=== PATIENT | female | born 1965 | race Hispanic/Latino ===

== ENCOUNTER 2016-09-07 02:39 | Emergency (ER) | payer BC ==
[~2016-09-07] VITALS: Ht 154.9 cm; Wt 71.8 kg
[~2016-09-07 02:39] MED LIST: BP MEDICATION; BYSTOLIC10 MG PO; CIPRO500 MG PO; FLAGYL500 MG PO; FLOMAX0.4 MG PO; HYDROCODON-ACE1 EA12 PO; LOSARTAN POTAS100 MG PO; LOSARTAN POTASS50 MG PO; PERCOCET 5/31 TABLET PO; ZOFRAN ODT4 MG PO; ZOFRAN ODT8 MG PO; ZOFRAN4 MG PO
[2016-09-07 03:26] LABS: HEMATOCRIT 35.5 % (36.0-46.0); MCH 29.7 PG (29.0-34.0); MCHC 34.1 G/DL (30.0-36.0); MEAN PLAT.VOLUME 9.2 uM^3 (9.5-12.4); RBC DIS.WIDTH-CV 12.2 % (11.8-14.6); RBC DIS.WIDTH-SD 37.8 % (39-53); RED BLOOD COUNT 4.08 M/uL (3.80-5.20)
[2016-09-07 03:29] LABS: PLATELET COUNT 357 K/uL (156-360); WHITE BLOOD COUNT 10.3 K/uL (4.1-10.2)
[2016-09-07 03:34] LABS: CHLORIDE 104 mEq/L (99-109); POTASSIUM 3.8 mEq/L (3.7-5.4); SODIUM 141 mEq/L (136-147)
[2016-09-07 03:37] LABS: GLUCOSE 130 mg/dL (70-99)
[2016-09-07 03:38] LABS: ANION GAP 11 MEQ/L (2-14)
[2016-09-07 03:39] LABS: TOTAL BILIRUBIN 0.6 mg/dL (0.0-1.0)
[2016-09-07 03:40] LABS: ALKALINE PHOSPHATASE 86 IU/L (3-129)
[2016-09-07 03:41] LABS: GFR ESTIMATE (CALCULATED) > 59 mL/min/
[2016-09-07 03:42] LABS: DIRECT BILIRUBIN 0.3 mg/dL (0.0-0.3); UREA NITROGEN (BUN) 14 mg/dL (9-23)
[2016-09-07 03:44] LABS: LIPASE 31 U/L (1.0-51.0)
[2016-09-07 04:24] LABS: COLOR AMBER ((YELLOW))
[2016-09-07 04:25] LABS: ADD MIUA? YES; BILIRUBIN NEGATIVE; BLOOD MODERATE; GLUCOSE (STRIP) NEGATIVE; KETONES NEGATIVE; LEUKOCYTES NEGATIVE; NITRITE NEGATIVE; PROTEIN (STRIP) 30
[2016-09-07 04:26] LABS: BACTERIA RARE /HPF; EPITHELIAL CELLS 1+ /HPF; UCUL ADDED? NO
[2016-09-07 04:27] LABS: CASTS PRESENT /LPF; CRYSTALS NONE SEEN; HYALINE CASTS 0-5 /LPF; MUCUS 2+ /LPF
[2016-09-07 07:12] VITALS: BP 109/77
== END 2016-09-07 07:39 | disposition short-term general hospital (02) ==
LOC: EME 02:39
PROVIDERS: Emergency Medicine
DX: K91.89 Other postprocedural complications and disorders of digestive system (principal); Z90.49 Acquired absence of other specified parts of digestive tract; Z88.2 Allergy status to sulfonamides; Z91.041 Radiographic dye allergy status
CPT/HCPCS: 74176; 80048; 80076; 81003; 83605; 83690; 85027; 87040; 87070; 87075; 87076; 87077; 87185; 87186; 87205; 99281; 99285; J2405; J2543; J7030

== ENCOUNTER 2016-10-14 19:52 | Emergency (ER) | payer BC ==
[~2016-10-14] VITALS: Ht 154.9 cm; Wt 74.4 kg
[2016-10-14 21:45] LABS: HEMATOCRIT 39.2 % (36.0-46.0); MCH 28.4 PG (29.0-34.0); MCHC 32.9 G/DL (30.0-36.0); MCV 86.3 FL (83-99); MEAN PLAT.VOLUME 9.9 uM^3 (9.5-12.4); PLATELET COUNT 261 K/uL (156-360); RBC DIS.WIDTH-CV 13.1 % (11.8-14.6); RBC DIS.WIDTH-SD 40.7 % (39-53); RED BLOOD COUNT 4.54 M/uL (3.80-5.20); WHITE BLOOD COUNT 7.2 K/uL (4.1-10.2)
[2016-10-14 21:52] LABS: CHLORIDE 108 mEq/L (99-109); POTASSIUM 3.4 mEq/L (3.7-5.4); SODIUM 144 mEq/L (136-147)
[2016-10-14 21:53] LABS: GLUCOSE 110 mg/dL (70-99)
[2016-10-14 21:55] LABS: ADD MIUA? YES; BILIRUBIN NEGATIVE; BLOOD SMALL; COLOR YELLOW ((YELLOW)); GLUCOSE (STRIP) NEGATIVE; KETONES NEGATIVE; LEUKOCYTES TRACE; NITRITE NEGATIVE; PROTEIN (STRIP) NEGATIVE; SPECIFIC GRAVITY 1.019 (1.000-1.030); UROBILINOGEN 0.2 MG/DL (0.2-1.0)
[2016-10-14 21:55] LABS: ANION GAP 12 MEQ/L (2-14)
[2016-10-14 21:57] LABS: GFR ESTIMATE (CALCULATED) > 59 mL/min/
[2016-10-14 21:58] LABS: UREA NITROGEN (BUN) 13 mg/dL (9-23)
[2016-10-14 22:06] LABS: BACTERIA NONE SEEN /HPF; CALCIUM OXALATE CRYSTALS 1+ /HPF; EPITHELIAL CELLS 1+ /HPF; MUCUS TRACE /LPF; UCUL ADDED? NO; WHITE BLOOD CELLS 0-5 /HPF (0-5)
[2016-10-14] MEDS ORDERED: PERCOCET 5/31 TABLET PO (22:19)
[2016-10-14] MEDS ORDERED: ZOFRAN4 MG PO (22:19)
[2016-10-14 22:55] VITALS: BP 150/96
== END 2016-10-14 23:25 | disposition home or self-care (01) ==
LOC: EME 19:52 → EXP 19:52
PROVIDERS: Physician Assistant
DX: R10.9 Unspecified abdominal pain (principal); R31.9 Hematuria, unspecified; N20.0 Calculus of kidney; I10 Essential (primary) hypertension; R51 Headache; K21.9 Gastro-esophageal reflux disease without esophagitis; Z90.711 Acquired absence of uterus with remaining cervical stump; Z90.49 Acquired absence of other specified parts of digestive tract
CPT/HCPCS: 80048; 81003; 85027; 99281; 99285

== ENCOUNTER 2016-10-23 03:30 | Emergency (ER) | payer BC ==
[~2016-10-23] VITALS: Ht 157.5 cm; Wt 74.5 kg
[2016-10-23 04:21] LABS: ADD MIUA? YES; BILIRUBIN NEGATIVE; BLOOD MODERATE; COLOR YELLOW ((YELLOW)); GLUCOSE (STRIP) NEGATIVE; KETONES NEGATIVE; LEUKOCYTES SMALL; NITRITE NEGATIVE; PROTEIN (STRIP) NEGATIVE; SPECIFIC GRAVITY 1.014 (1.000-1.030); UROBILINOGEN 0.2 MG/DL (0.2-1.0)
[2016-10-23 04:34] LABS: BACTERIA RARE /HPF; EPITHELIAL CELLS 2+ /HPF; MUCUS TRACE /LPF; RED BLOOD CELLS 30-40 /HPF (0-5); UCUL ADDED? NO
[2016-10-23 04:42] LABS: MCH 29.3 PG (29.0-34.0); MCHC 34.1 G/DL (30.0-36.0); MEAN PLAT.VOLUME 9.6 uM^3 (9.5-12.4); PLATELET COUNT 224 K/uL (156-360); RBC DIS.WIDTH-CV 13.2 % (11.8-14.6); RBC DIS.WIDTH-SD 40.5 % (39-53); WHITE BLOOD COUNT 6.8 K/uL (4.1-10.2)
[2016-10-23 04:53] LABS: CHLORIDE 108 mEq/L (99-109); POTASSIUM 3.3 mEq/L (3.7-5.4); SODIUM 143 mEq/L (136-147)
[2016-10-23 04:55] LABS: GLUCOSE 119 mg/dL (70-99)
[2016-10-23 04:56] LABS: ANION GAP 11 MEQ/L (2-14)
[2016-10-23 04:57] LABS: TOTAL BILIRUBIN 0.4 mg/dL (0.0-1.0)
[2016-10-23 04:58] LABS: ALKALINE PHOSPHATASE 90 IU/L (3-129)
[2016-10-23 04:59] LABS: GFR ESTIMATE (CALCULATED) > 59 mL/min/
[2016-10-23 05:00] LABS: UREA NITROGEN (BUN) 12 mg/dL (9-23)
[2016-10-23 05:02] LABS: LIPASE 44 U/L (1.0-51.0)
[2016-10-23 05:11] LABS: QUANTITATIVE HCG < 4.0 MIU/ML
[2016-10-23] MEDS ORDERED: KEFLEX500 MG PO (05:55)
[2016-10-23] MEDS ORDERED: BENTYL10 MG PO (05:55)
[2016-10-23] MEDS ORDERED: NAPROXEN500 MG PO (07:22)
[2016-10-23 07:32] VITALS: BP 121/78
== END 2016-10-23 07:40 | disposition home or self-care (01) ==
LOC: EME 03:30
DX: G89.29 Other chronic pain (principal); R10.12 Left upper quadrant pain; Z90.49 Acquired absence of other specified parts of digestive tract; I10 Essential (primary) hypertension; Z87.442 Personal history of urinary calculi; Z91.02 Food additives allergy status; Z88.2 Allergy status to sulfonamides; Z91.041 Radiographic dye allergy status; Z88.8 Allergy status to other drugs, medicaments and biological substances; Z88.1 Allergy status to other antibiotic agents
CPT/HCPCS: 74176; 80053; 81003; 83690; 84702; 85027; 99281; 99285; J1885; J2405

== ENCOUNTER 2017-04-08 20:00 | Emergency (ER) | payer OTHER ==
[~2017-04-08] VITALS: Ht 154.9 cm; Wt 79.2 kg
[~2017-04-08 20:00] MED LIST changes: +BENTYL10 MG PO; +KEFLEX500 MG PO; +NAPROXEN500 MG PO
[2017-04-08 21:07] LABS: ADD MIUA? YES; BILIRUBIN NEGATIVE; BLOOD LARGE; COLOR YELLOW ((YELLOW)); GLUCOSE (STRIP) NEGATIVE; KETONES NEGATIVE; LEUKOCYTES NEGATIVE; NITRITE NEGATIVE; PROTEIN (STRIP) 30; SPECIFIC GRAVITY 1.018 (1.000-1.030); UROBILINOGEN 0.2 MG/DL (0.2-1.0)
[2017-04-08 21:19] LABS: BACTERIA NONE SEEN /HPF; EPITHELIAL CELLS RARE /HPF; MUCUS TRACE /LPF; RED BLOOD CELLS TNTC /HPF (0-5); UCUL ADDED? YES
[2017-04-08 21:29] LABS: HEMATOCRIT 45.2 % (36.0-46.0); MCH 30.5 PG (29.0-34.0); MCHC 34.3 G/DL (30.0-36.0); MCV 88.8 FL (83-99); MEAN PLAT.VOLUME 9.7 uM^3 (9.5-12.4); PLATELET COUNT 273 K/uL (156-360); RBC DIS.WIDTH-CV 12.3 % (11.8-14.6); RED BLOOD COUNT 5.09 M/uL (3.80-5.20); WHITE BLOOD COUNT 9.7 K/uL (4.1-10.2)
[2017-04-08 21:40] LABS: CHLORIDE 104 mEq/L (99-109); POTASSIUM 4.2 mEq/L (3.7-5.4); SODIUM 140 mEq/L (136-147)
[2017-04-08 21:41] LABS: GLUCOSE 150 mg/dL (70-99)
[2017-04-08 21:43] LABS: ANION GAP 13 MEQ/L (2-14)
[2017-04-08 21:45] LABS: GFR ESTIMATE (CALCULATED) > 59 mL/min/
[2017-04-08 21:46] LABS: UREA NITROGEN (BUN) 19 mg/dL (9-23)
[2017-04-08 21:53] LABS: QUANTITATIVE HCG < 4.0 MIU/ML
[2017-04-09] MEDS ORDERED: FLOMAX0.4 MG PO (00:05)
[2017-04-09] MEDS ORDERED: NORCO 5/3251 TABLET PO (00:05)
[2017-04-09 00:41] VITALS: BP 106/61
== END 2017-04-09 00:42 | disposition home or self-care (01) ==
LOC: EME 20:00
DX: N13.2 Hydronephrosis with renal and ureteral calculous obstruction (principal); I10 Essential (primary) hypertension; K21.9 Gastro-esophageal reflux disease without esophagitis; K57.30 Diverticulosis of large intestine without perforation or abscess without bleeding; Z90.711 Acquired absence of uterus with remaining cervical stump; Z90.49 Acquired absence of other specified parts of digestive tract
CPT/HCPCS: 74176; 80048; 81003; 84702; 85027; 87086; 99281; 99284; J1885

== ENCOUNTER 2018-03-02 15:51 | Emergency (ER) | payer BC ==
[~2018-03-02] VITALS: Ht 154.9 cm; Wt 79.6 kg
[~2018-03-02 15:51] MED LIST changes: +NORCO 5/3251 TABLET PO
[2018-03-02 16:58] LABS: HEMATOCRIT 38.8 % (36.0-46.0); HEMOGLOBIN 13.6 G/DL (11.9-15.5); MCHC 35.1 G/DL (30.0-36.0); MCV 88.4 FL (83-99); PLATELET COUNT 215 K/uL (156-360); RBC DIS.WIDTH-CV 11.9 % (11.8-14.6); RBC DIS.WIDTH-SD 38.6 % (39-53); RED BLOOD COUNT 4.39 M/uL (3.80-5.20); WHITE BLOOD COUNT 6.7 K/uL (4.1-10.2)
[2018-03-02 17:07] LABS: CHLORIDE 110 mEq/L (99-109); POTASSIUM 4.2 mEq/L (3.7-5.4); SODIUM 142 mEq/L (136-147)
[2018-03-02 17:09] LABS: GLUCOSE 118 mg/dL (70-99); TOTAL PROTEIN 6.9 g/dL (6.4-8.3)
[2018-03-02 17:11] LABS: TOTAL BILIRUBIN 0.5 mg/dL (0.0-1.0)
[2018-03-02 17:12] LABS: ALKALINE PHOSPHATASE 82 IU/L (3-129)
[2018-03-02 17:13] LABS: CREATININE 0.9 mg/dL (0.6-1.3); GFR ESTIMATE (CALCULATED) > 59 mL/min/
[2018-03-02 17:14] LABS: AST (GOT) 26 IU/L (2-34); UREA NITROGEN (BUN) 19 mg/dL (9-23)
[2018-03-02 17:15] LABS: ALT (GPT) 50 IU/L (3-49)
[2018-03-02 17:38] LABS: APPEARANCE CLEAR ((CLEAR)); BILIRUBIN NEGATIVE; BLOOD SMALL; COLOR YELLOW ((YELLOW)); GLUCOSE (STRIP) NEGATIVE; KETONES NEGATIVE; LEUKOCYTES NEGATIVE; NITRITE NEGATIVE; PROTEIN (STRIP) NEGATIVE; SPECIFIC GRAVITY 1.024 (1.000-1.030); UROBILINOGEN 0.2 MG/DL (0.2-1.0)
[2018-03-02 17:53] LABS: BACTERIA NONE SEEN /HPF; EPITHELIAL CELLS 1+ /HPF; MUCUS TRACE /LPF; UCUL ADDED? NO; WHITE BLOOD CELLS 0-5 /HPF (0-5)
[2018-03-02] MEDS ORDERED: BENTYL20 MG PO (20:03)
[2018-03-02] MEDS ORDERED: TRAMADOL HCL50 MG PO (20:03)
[2018-03-02] MEDS ORDERED: ZOFRAN4 MG PO (20:05)
[2018-03-02 20:40] VITALS: BP 103/67
== END 2018-03-02 20:43 | disposition home or self-care (01) ==
LOC: EME 15:51
PROVIDERS: Physician Assistant
DX: K57.90 Diverticulosis of intestine, part unspecified, without perforation or abscess without bleeding (principal); I10 Essential (primary) hypertension; K21.9 Gastro-esophageal reflux disease without esophagitis; Z87.442 Personal history of urinary calculi; Z90.49 Acquired absence of other specified parts of digestive tract; Z90.710 Acquired absence of both cervix and uterus; Z91.041 Radiographic dye allergy status; Z88.2 Allergy status to sulfonamides; Z88.1 Allergy status to other antibiotic agents; Z88.8 Allergy status to other drugs, medicaments and biological substances
CPT/HCPCS: 74176; 80053; 81003; 85027; 99281; 99285; J2270; J2405; J7030